=== PATIENT | male | born 1955 | race Caucasian/White ===

== ENCOUNTER → 2022-01-06 | Outpatient (CLI) | payer MEDICARE ==
[~2022-01-06] MED LIST: AMLODIPINE BESYL5 MG PO; CIALIS5 MG PO; IOPAMIDOL 370 MG/ML 100 ML INFUS..BTL INJ ONE; LIPITOR10 MG PO; LOSARTAN POTASS25 MG PO; METFORMIN HCL500 MG PO; PANTOPRAZOLE SO40 MG PO
[2022-01-06 09:18] LABS: CREATININE, SERUM 0.93 mg/dL (0.72-1.25)
== END ==
LOC: CT 08:07
PROVIDERS: ATTEND Internal Medicine Gastroenterology
DX: R74.8 Abnormal levels of other serum enzymes (principal); R91.1 Solitary pulmonary nodule
CPT/HCPCS: 36415; 71260; 74177; 82565; 84520; Q9967

== ENCOUNTER → 2022-12-28 | Outpatient (REF) | payer MEDICARE ==
[~2022-12-28] MED LIST changes: -IOPAMIDOL 370 MG/ML 100 ML INFUS..BTL INJ ONE
== END ==
LOC: RAD 09:02
PROVIDERS: ATTEND Internal Medicine
DX: J41.0 Simple chronic bronchitis (principal)
CPT/HCPCS: 71046